=== PATIENT | male | born 1995 | race Hispanic/Latino ===

== ENCOUNTER 2019-01-16 20:11 | Emergency (ER) | payer SELFPAY ==
[~2019-01-16] VITALS: Ht 165.1 cm; Wt 75.0 kg
[~2019-01-16 20:11] MED LIST: CLEOCIN300 MG PO
[2019-01-16] MEDS ORDERED: AMOXICILLIN500 MG PO (21:01)
[2019-01-16 21:20] VITALS: BP 130/80
== END 2019-01-16 21:25 | disposition home or self-care (01) | DRG 156 ==
LOC: ED 20:11
DX: S09.91XA Unspecified injury of ear, initial encounter (principal); X58.XXXA Exposure to other specified factors, initial encounter